=== PATIENT | female | born 1995 | race Caucasian/White ===

== ENCOUNTER 2017-11-05 23:48 | Emergency (ER) | payer BC ==
[2017-11-06] MEDS ORDERED: LET GEL TOPICAL 1 EA SYR TP ONE (00:03)
[2017-11-06] MEDS ORDERED: PROPARACAINE 0.5% 15 ML OPHT DROP OP ONE (00:17)
[2017-11-06] MEDS ORDERED: FLUORESCEIN SODIUM 1 MG STRIP OP ONE (00:17)
[2017-11-06] MEDS ORDERED: ERYTHROMYCIN 0.5% 1 GM OPHT.OINT LEFTEYE ONE (01:06)
--- NOTE | 2017-11-06 01:06 | EDPHY ---
General - History Smoking Status: Never smoked Narrative: CHIEF COMPLAINT: Left eyelid laceration HISTORY OF PRESENT ILLNESS: Patient presents with complaints of laceration to the left eyelid. This happened approximately 1 hr ago. She slipped on some water, striking her left eye on a glass. The glass did break. She sustained a laceration to the left eyelid. She does not feel any pain in the left eye, but there is a foreign body sensation. No difficulty with vision. No head strike or loss of consciousness. No neck pain. No injury elsewhere. Tetanus up-to-date. No other associated complaints or modifying factors. TIME OF INJURY: Less than 1 hr prior to arrival TETANUS STATUS: Up-to-date MEDICAL/SURGICAL/SOCIAL HISTORY: Uncomplicated medical history. [employer] student. REVIEW OF SYSTEMS: Ten systems reviewed and are negative unless otherwise noted in the HPI EXAMINATION General Appearance: Alert, no distress Head: normocephalic, atraumatic ENT: Pupils equal round reactive. No hyphema. No subconjunctival hemorrhage. There is a 1.5 cm, v-shaped laceration of the left eyelid. There is no involvement of the tarsal plate. There is no laceration of the inner eyelid. No obvious large foreign body by gross examination. EOMs intact and painless. Wood lamp exam: No foreign body. Lid everted. 0.25 cm corneal abrasion at 11: 00 position. Cardiovascular: Pulses normal throughout. Brisk cap refill Neurological: A&O, GCS 15. sensory symmetric, strength symmetric Skin: Warm and dry, no rash. Eyelid laceration as above. Extremities: Nontender, no pedal edema DIFFERENTIAL DIAGNOSES: Including but not limited to laceration, complex laceration, foreign body of the eye, conjunctival abrasion, corneal abrasion MDM: 12:20 a.m. Mechanical fall with left eyelid laceration. No hyphema or subconjunctival hemorrhage. No obvious foreign body in the laceration wound bed. Tetanus is up- to-date. Topical let is in place. I will anesthetize the wound and closed. She will also need a stain examination. 1:10 a.m. Left eyelid laceration with no involvement of the tarsal plate. This has been closed with special attention to not suture through the tarsal plate. Symmetric range of motion of the eyebrows and eyelids postprocedure. I did perform of floor seen examination and there was a corneal abrasion at 11 o' clock measuring 0.25 cm. There was no glass foreign body with lid eversion. No hyphema. Erythromycin ointment as been ordered 3 times daily for 7 days. Wound care discussed for the laceration. I provided the on-call spa concierge for outpatient follow-up and repeat examination. We discussed ED precautions and returning to the emergency department in 5-7 days for suture removal. She still for discharge home at this time. PROCEDURE: Laceration repair Consent: Verbal Location: Left upper eyelid Length of repair: 1.5 cm, v-shaped Complexity: Complex due to location Layer involvement: Single layer. No acute occasion to the eye Anesthesia: Local. 1% lidocaine without epinephrine. 5 mL Irrigation: Extensive Debridement: None Procedure description: Following good anesthesia, the wound was copiously irrigated. Wound bed was explored with a sterile glove, and there is no foreign body noted. Eyelid everted and there is no trauma to the inner eyelid. No foreign body. Special care was taken to avoid suturing through the tarsal plate. Wound borders were approximated well with good hemostasis. Tolerated well without complication. Suture/Staple material: 7-0 Prolene, 4 simple interrupted sutures. Wound care: Routine as discussed Suture/Staple removal: 5-7 Days SUPERVISION: Patient was independently examined, but I discussed the case with my secondary supervising physician Dr. Holbroko ED Precautions: Worsening pain. Erythema, edema, cyanosis, pallor, paresthesia or anesthesia. (Memo Johnson) PHYSICIAN DOCUMENTATION: The patient was evaluated and managed by the Physician Rug Setter [place]. My co- signature indicates that I have reviewed this chart and I agree with the findings and plan of care as documented. I am the secondary supervising physician. (Christine Holbrook) - Objective Vital Signs: Initial Vital Signs Temperature (C) 36.8 C 11/05/17 23:49 Heart Rate 107 H 11/05/17 23:49 Respiratory Rate 18 11/05/17 23:49 Blood Pressure 122/69 H 11/05/17 23:49 O2 Sat (%) 93 11/05/17 23:49 O2 Delivery Mode Room Air Allergies/Adverse Reactions: No Known Allergies Allergy (Unverified 11/05/17 23:55) Home Medications: Medication Instructions Recorded Bcp 11/05/17 Buspar (*) 11/05/17 Lexapro 11/05/17 Medications Given: Discontinued Medications Erythromycin (Erythromycin 0.5%) 1 livia LEFTEYE ONCE ONE Stop: 11/06/17 01:07 Last Admin: 11/06/17 01:35 Dose: 1 livia Fluorescein Sodium ([id number]) 1 mg OP EDNOW ONE Stop: 11/06/17 00:18 Last Admin: 11/06/17 01:25 Dose: Not Given Proparacaine HCl (Alcaine 0.5%) 1 drops OP EDNOW ONE Stop: 11/06/17 00:18 Last Admin: 11/06/17 01:26 Dose: Not Given Tetracaine/Epinephrine/Lidocaine (Let Gel Topical) 1 ea TP EDNOW ONE Stop: 11/06/17 00:04 Last Admin: 11/06/17 00:08 Dose: 1 ea Departure - Departure Disposition: Home, Routine, Self-Care Clinical Impression: Eyelid laceration, left Qualifiers: Encounter type: initial encounter Qualified Code(s): S01.112A - Laceration without foreign body of left eyelid and periocular area, initial encounter Corneal abrasion, left Qualifiers: Encounter type: initial encounter Qualified Code(s): S05.02XA - Injury of conjunctiva and corneal abrasion without foreign body, left eye, initial encounter Condition: Good Instructions: Erythromycin (Into the eye), Laceration (ED), Corneal Abrasion ( ED), Facial Laceration (ED) Additional Instructions: 1. Daily wound care as discussed 2. Erythromycin ointment 3 times daily to the left eye as discussed for 7 days 3. Contact the spa concierge as provided for outpatient follow-up 4. ED precautions as discussed 5. Return to emergency department in 5-7 days for suture removed Referrals: MERT DUVALL [Other] - As per Instructions Adela Whitman MD [Medical Doctor] - As per Instructions Stand Alone Forms: Work Excuse
[2017-11-06 02:36] VITALS: BP 111/67; PULSE 80; RESP 16; TEMP 98.1; O2SAT 95
== END 2017-11-06 01:53 | disposition home or self-care (01) ==
PROC: 08QPXZZ Repair Left Upper Eyelid, External Approach (ICD-10-PCS; principal; 2017-11-05)
DX: S01.112A Laceration without foreign body of left eyelid and periocular area, initial encounter (principal); S05.02XA Injury of conjunctiva and corneal abrasion without foreign body, left eye, initial encounter; W01.198A Fall on same level from slipping, tripping and stumbling with subsequent striking against other object, initial encounter

== ENCOUNTER 2017-11-09 12:08 | Emergency (ER) | payer BC ==
[2017-11-09 12:24] VITALS: BP 129/71; PULSE 90; RESP 18; TEMP 98.1; O2SAT 99
[2017-11-09] MEDS ORDERED: ONDANSETRON 4 MG/2 ML VIAL IVP ONE ×2 (13:05→14:47)
[2017-11-09] MEDS ORDERED: NS 1,000 ML IV ONE ×2 (13:05)
--- NOTE | 2017-11-09 13:12 | EDPHY ---
H & P Stated Complaint: N/V; roomate w/same sxs Time Seen by Provider: 11/09/17 13:03 HPI/ROS: CHIEF COMPLAINT: Nausea, vomiting, diarrhea HISTORY OF PRESENT ILLNESS: The patient presents to the ED with a 2 day history of nausea, vomiting, diarrhea and mild abdominal cramping. The patient denies recent travel outside the [place]. She denies antibiotic use. She denies prior history of significant medical problems. Patient reports that she is feeling dehydrated and somewhat presyncopal. The patient denies any fever, cough, congestion or respiratory complaints. She reports her symptoms are moderate in nature. REVIEW OF SYSTEMS: A comprehensive 10 point review of systems is otherwise negative aside from elements mentioned in the history of present illness. Source: Patient Exam Limitations: No limitations - Personal History LMP (Females 10-55): 8-14 Days Ago Current Tetanus Diphtheria and Acellular Pertussis (TDAP): Yes - Medical/Surgical History Hx Asthma: No Hx Chronic Respiratory Disease: No Hx Diabetes: No Hx Cardiac Disease: No Hx Renal Disease: No Hx Cirrhosis: No Hx Alcoholism: No Hx HIV/AIDS: No Hx Splenectomy or Spleen Trauma: No Other PMH: anxiety, depression - Social History Smoking Status: Never smoked - Physical Exam Exam: General Appearance: Alert, no distress Eyes: Pupils equal and round no pallor or injection ENT, Mouth: Mucous membranes moist Respiratory: There are no retractions, lungs are clear to auscultation Cardiovascular: Regular rate and rhythm Gastrointestinal: Hyperactive bowel sounds, minimal generalized tenderness, no peritoneal signs Neurological: A&O, normal motor function, normal sensory exam, normal cranial nerves Skin: Warm and dry, no rashes Musculoskeletal: Neck is supple nontender Extremities: symmetrical, full range of motion Constitutional: Initial Vital Signs Temperature (C) 36.7 C 11/09/17 12:15 Heart Rate 90 11/09/17 12:15 Respiratory Rate 18 11/09/17 12:15 Blood Pressure 129/71 H 11/09/17 12:15 O2 Sat (%) 99 11/09/17 12:15 O2 Delivery Mode Room Air Allergies/Adverse Reactions: No Known Allergies Allergy (Verified 11/09/17 12:20) Home Medications: Medication Instructions Recorded Bcp 11/05/17 Buspar (*) 11/05/17 Lexapro 11/05/17 Ondansetron Odt [Zofran Odt] 4 mg PO Q4PRN PRN #20 tab 11/09/17 Medical Decision Making ED Course/Re-evaluation: The patient presents to the ED with a 1 day history of gastroenteritis. She has a benign abdominal examination and her vital signs are stable. The patient had an IV established. She received a L of normal saline. She received 4 mg of IV Zofran. Her laboratory studies demonstrate no significant leukocytosis or metabolic abnormality. The patient received an additional 1 L of IV rehydration. I reexamined the patient at 2:30 p.m.: She continues to complain of mild nausea. She is given additional dose of Zofran. 3:00 p.m.: Patient is given a p.o. challenge. Patient re-evaluated at 4:00 p.m. and is currently feeling much better. She would like to be discharged home. She will be given a prescription for anti emetics. She is discharged home with customary aftercare instructions and return precautions. Differential Diagnosis: Differential diagnosis considered includes gastroenteritis, dehydration, metabolic abnormality, - Data Points Laboratory Results: Laboratory Results 11/09/17 13:11 11/09/17 13:11 11/09/17 11/09/17 11/09/17 13:11 13:11 13:11 WBC 8.50 10^3/uL 10^3/uL (3.80-9.50) RBC 4.87 10^6/uL 10^6/uL (4.18-5.33) Hgb 15.5 g/dL g/dL (12.6-16.3) Hct 42.9 % % (38.0-47.0) MCV 88.1 fL fL (81.5-99.8) MCH 31.8 pg pg (27.9-34.1) MCHC 36.1 g/dL g/dL (32.4-36.7) RDW 11.9 % % (11.5-15.2) Plt Count 272 10^3/uL 10^3/uL (150-400) MPV 8.9 fL fL (8.7-11.7) Neut % (Auto) 81.0 % H % (39.3-74.2) Lymph % (Auto) 13.8 % L % (15.0-45.0) Ross % (Auto) 4.2 % L % (4.5-13.0) Eos % (Auto) 0.1 % L % (0.6-7.6) Baso % (Auto) 0.7 % % (0.3-1.7) Nucleat RBC Rel Count 0.0 % % (0.0-0.2) Absolute Neuts (auto) 6.88 10^3/uL H 10^3/uL (1.70-6.50) Absolute Lymphs (auto) 1.17 10^3/uL 10^3/uL (1.00-3.00) Absolute Monos (auto) 0.36 10^3/uL 10^3/uL (0.30-0.80) Absolute Eos (auto) 0.01 10^3/uL L 10^3/uL (0.03-0.40) Absolute Basos (auto) 0.06 10^3/uL 10^3/uL (0.02-0.10) Absolute Nucleated RBC 0.00 10^3/uL 10^3/uL (0-0.01) Immature Gran % 0.2 % % (0.0-1.1) Immature Gran # 0.02 10^3/uL 10^3/uL (0.00-0.10) Sodium 138 mEq/L mEq/L (135-145) Potassium 4.1 mEq/L mEq/L (3.5-5.2) Chloride 102 mEq/L mEq/L (97-110) Carbon Dioxide 19 mEq/l L mEq/l (22-31) Anion Gap 17 mEq/L H mEq/L (8-16) BUN 7 mg/dL mg/dL (7-23) Creatinine 0.8 mg/dL mg/dL (0.6-1.0) Estimated GFR > 60 Glucose 86 mg/dL mg/dL (70-100) Calcium 9.4 mg/dL mg/dL (8.5-10.4) Total Bilirubin 0.8 mg/dL mg/dL (0.1-1.4) Conjugated Bilirubin 0.3 mg/dL mg/dL (0.0-0.5) Unconjugated Bilirubin 0.5 mg/dL mg/dL (0.0-1.1) AST 26 IU/L IU/L (14-46) ALT 22 IU/L IU/L (9-52) Alkaline Phosphatase 60 IU/L IU/L (38-126) Total Protein 7.7 g/dL g/dL (6.3-8.2) Albumin 4.4 g/dL g/dL (3.5-5.0) Lipase 58 IU/L IU/L (23-300) Beta HCG, Qual NEGATIVE Medications Given: Discontinued Medications Sodium Chloride (Ns) 1,000 mls @ 0 mls/hr IV EDNOW ONE; Wide Open PRN Reason: Protocol Stop: 11/09/17 13:06 Last Admin: 11/09/17 13:16 Dose: 1,000 mls Sodium Chloride (Ns) 1,000 mls @ 0 mls/hr IV EDNOW ONE; Wide Open PRN Reason: Protocol Stop: 11/09/17 13:06 Last Admin: 11/09/17 13:16 Dose: 1,000 mls Ondansetron HCl (Zofran) 4 mg IVP EDNOW ONE Stop: 11/09/17 13:06 Last Admin: 11/09/17 13:17 Dose: 4 mg Ondansetron HCl (Zofran) 4 mg IVP EDNOW ONE Stop: 11/09/17 14:48 Last Admin: 11/09/17 14:52 Dose: 4 mg Departure - Departure Disposition: Home, Routine, Self-Care Clinical Impression: Gastroenteritis, Dehydration Condition: Good Instructions: Gastroenteritis (ED) Additional Instructions: 1. Zofran as needed for nausea. 2. Imodium as needed for diarrhea. 3. Return to the ED for severe abdominal pain, worsening symptoms, intractable vomiting, high fever or other concerns. Referrals: MERT DUVALL [Other] - As per Instructions Prescriptions: Ondansetron Odt [Zofran Odt] 4 mg PO Q4PRN PRN #20 tab PRN Reason: For Nausea
[2017-11-09 13:19] LABS: PLATELET COUNT 272 10^3/uL (150-400)
== END 2017-11-09 16:41 | disposition home or self-care (01) ==
DX: K52.9 Noninfective gastroenteritis and colitis, unspecified (principal); E86.0 Dehydration; E86.9 Volume depletion, unspecified
CPT/HCPCS: 96374; J2405